=== PATIENT | male | born 1950 | race Asian ===

== ENCOUNTER 2023-08-12 11:15 | Outpatient (CLI) | payer OTHER ==
[2023-08-12] MEDS ORDERED: CYSTOGRAFIN 300 ML INFUS..BTL UR ONE (11:43)
== END 2023-08-12 18:59 | disposition home or self-care (01) ==
LOC: SRD 11:15
PROVIDERS: ATTEND Urology Pediatric Urology
DX: C61 Malignant neoplasm of prostate (principal)
CPT/HCPCS: 74430; 51600; Q9958